=== PATIENT | female | born 2000 | race African-American/Black ===

== ENCOUNTER 2022-11-01 18:35 | Emergency (ER) | payer OTHER, SELFPAY ==
[2022-11-01 18:38] VITALS: BP 146/82; PULSE 110; RESP 18; TEMP 36.6; O2SAT 100
[2022-11-01] MEDS: ACETAMINOPHEN 500 MG TABLET 1000 MG PO (19:29)
[2022-11-01] MEDS: IBUPROFEN 400 MG TABLET 800 MG PO (19:34)
[2022-11-01] MEDS: LIDOCAINE HCL 1% LOCAL INJ 10 ML VIAL INFILTRATE (19:34)
[2022-11-01 19:39] VITALS: BP 128/72; PULSE 84; RESP 18; O2SAT 100
--- NOTE | 2022-11-01 19:40 | PC.NURSE ---
Lac tray with Lido and sutures are at bedside. ABC are wnl nad.
--- NOTE | 2022-11-01 20:07 | ED.GENADULT ---
HPI - General Adult General Chief complaint: Extremity Injury, Lower Stated complaint: stubbed toe, toe nail is off Time Seen by Provider: 11/01/22 18:47 History of Present Illness HPI narrative: this is a 22-year-old female presenting with a injury to her right great toe. patient was in a pool when she kicked a wall and knocked her acrylic nail off. No other injuries. Unknown last tetanus Related Data Allergies Allergy/AdvReac Type Severity Reaction Status Date / Time No Known Allergies Allergy Verified 11/01/22 18:36 Exam Narrative: APPEARANCE: No apparent distress. Head: atraumatic. EYES: EOMI, NOSE: Atraumatic NECK: Trachea midline RESPIRATORY: No increased rate of breathing CARDIOVASCULAR: RRR, ABDOMINAL: Non-distended MUSCULOSKELETAl: No obvious deformities NEURO: Alert. Moving 4/4 extremities SKIN:: the great toe on the right foot is almost completely removed. No underlying nail bed injury. PSYCHIATRIC: Normal affect Course Vital Signs Vital signs: Vital Signs Temperature 97.8 F 11/01/22 18:38 Pulse Rate 110 H 11/01/22 18:38 Respiratory Rate 18 11/01/22 18:38 Blood Pressure 146/82 H 11/01/22 18:38 Pulse Oximetry 100 11/01/22 18:38 Oxygen Delivery Room Air 11/01/22 18:38 Temperature 97.8 F 11/01/22 18:38 Pulse Rate 84 11/01/22 19:39 Respiratory Rate 18 11/01/22 19:39 Blood Pressure 128/72 11/01/22 19:39 Pulse Oximetry 100 11/01/22 19:39 Oxygen Delivery Room Air 11/01/22 18:38 Procedures Laceration Laceration 1: Date: 11/01/22 Site: other Side (If applicable): right ( nail injury to the right great toe. Was unable to salvage the patient's nail due to acrylic covering. A foil place dawn was created and sutured into place) Size (cm): 2 Description: other (Nailbed injury) Pre-repair: wound explored, irrigated and minor debridement ====== Skin Level ====== Skin layer closed with: nylon Size (cm): 4-0 Number of sutures: 3 ====== Subcutaneous Layer ====== ====== Muscle Layer ====== ====== Tendon Layer ====== Medical Decision Making MDM Narrative Medical decision making narrative: -Presentation: 22-year-old presenting with a toenail injury on the right foot. 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 Due to the hard acrylic dip on the nails I was unable to reattached the nail. A piece of foil was used to preserve the nail bed. -Interventions: Motrin, Tylenol, Tdap -Shared decision making / Disposition: patient will be discharged with podiatry follow-up. -RX Keflex 500mg Vital Signs Vital Signs: Vital Signs Temperature 97.8 F 11/01/22 18:38 Pulse Rate 110 H 11/01/22 18:38 Respiratory Rate 18 11/01/22 18:38 Blood Pressure 146/82 H 11/01/22 18:38 Pulse Oximetry 100 11/01/22 18:38 Oxygen Delivery Room Air 11/01/22 18:38 Temperature 97.8 F 11/01/22 18:38 Pulse Rate 84 11/01/22 19:39 Respiratory Rate 18 11/01/22 19:39 Blood Pressure 128/72 11/01/22 19:39 Pulse Oximetry 100 11/01/22 19:39 Oxygen Delivery Room Air 11/01/22 18:38 Discharge Plan Discharge Clinical Impression: Nailbed injury Patient Disposition: Home, Self-Care Condition: Stable Instructions: Antibiotic Form, Care For Your Stitches (ED) Additional Instructions: You were seen in the emergency department for a nail bed injury. Please follow-up with podiatry in 1ne week. please keep your foot
[2022-11-01] MEDS: TETANUS,DIPHTHERIA,AC PERTUSSIS ADULT (0.5 ML) BOOSTRIX IM (20:12)
[2022-11-01 20:51] VITALS: BP 135/72; PULSE 84; RESP 16; TEMP 36.6; O2SAT 97
== END 2022-11-01 20:52 | disposition home or self-care (01) ==
PROVIDERS: Emergency Provider Emergency Medicine
DX: S91.201A Unspecified open wound of right great toe with damage to nail, initial encounter (principal); Z23 Encounter for immunization; W22.042A Striking against wall of swimming pool causing other injury, initial encounter
CPT/HCPCS: 11760; 12001; 90471; 90715; 99283; A9270

== ENCOUNTER 2024-08-27 11:01 | Emergency (ER) | payer OTHER, SELFPAY ==
[2024-08-27 11:10] VITALS: BP 111/65; PULSE 80; RESP 16; TEMP 36.6; O2SAT 100
--- NOTE | 2024-08-27 11:29 | ED_ITS ---
HPI - General Adult General Chief complaint: Abdominal Pain Stated complaint: ABD PAIN Time Seen by Provider: 08/27/24 11:25 Mode of arrival: ambulatory Limitations: no limitations History of Present Illness HPI narrative: 24-year-old female presents concern for menstrual cramps. She reports she missed school yesterday because she had worse cramps and usual. Reports they have improved but she needs a note to go back to school. She denies any fever, body aches, chills, sweats. Denies any nausea or vomiting. MD complaint: Menstrual cramps Related Data Home Medications ?Medication ?Instructions ?Recorded ?Confirmed ?Last Taken ?Type No Home Medications 08/27/24 08/27/24 Unknown History Allergies Allergy/AdvReac Type Severity Reaction Status Date / Time No Known Allergies Allergy Verified 08/27/24 11:13 Review of Systems Review of Systems: CONSTITUTIONAL: Denies malaise, chills, sweats, or fever. RESPIRATORY: Denies cough or dyspnea. GASTROINTESTINAL: Denies abdominal pain, nausea, vomiting, diarrhea GENITOURINARY: Denies dysuria or hematuria. MUSCULOSKELETAL: Denies back pain, joint pain, or myalgia. All systems reviewed & are unremarkable except as noted in HPI and below PMFSH Comments At time of signature, agree with nursing past medical, surgical, social and family history. There is no relevant family history pertinent to the presenting complaint Exam Narrative: GENERAL: Well-appearing, well-nourished, and in no acute distress. HEAD: Normocephalic. EYES: PERRLA, conjunctivae clear. NECK: Supple. No lymphadenopathy CHEST: Clear to auscultation. No respiratory distress. HEART: Regular rate and rhythm. ABDOMEN: Soft, nontender upon palpation, nondistended, normal active bowel sounds, no palpable or pulsatile masses, no guarding. No CVA tenderness SKIN: Warm, dry, no rash. NEURO: Alert and oriented x3. PSYCH: Normal mood and affect Course Course Emergency Course: Patient is aware of diagnosis, understands and agrees to treatment plan. Anticipatory guidance given. Patient agrees to follow-up as directed and is aware of reasons to seek care at the emergency department. Portions of this record may have been created with voice recognition software Level of Care: Express Care Visit Vital Signs Vital signs: Vital Signs Temperature 97.8 F 08/27/24 11:10 Pulse Rate 80 08/27/24 11:10 Respiratory Rate 16 08/27/24 11:10 Blood Pressure 111/65 08/27/24 11:10 Pulse Oximetry 100 08/27/24 11:10 Temperature 97.8 F 08/27/24 11:10 Pulse Rate 80 08/27/24 11:10 Respiratory Rate 16 08/27/24 11:10 Blood Pressure 111/65 08/27/24 11:10 Pulse Oximetry 100 08/27/24 11:10 Reviewed. Medical Decision Making MDM Narrative Medical decision making narrative: The patient was evaluated by myself in the [facility]. History is obtained from patient who is an independent historian and physical exam was performed.? Available medical records were reviewed at this time. ? Exam findings show no acute concerns or changes; patient is non-toxic appearing and is in no distress. Patient is appropriate for outpatient treatment and follow-up. ? I have evaluated and discussed social determinants of health with the patient that could potentially impact subsequent diagnosis and treatment plans. ? Differential diagnosis and treatment plan were discussed with the patient. Patient agrees with discussion and after shared medical decision making agrees with plan of care. All questions were answered to the patient's satisfaction. Vital Signs Vital Signs: Vital Signs Temperature 97.8 F 08/27/24 11:10 Pulse Rate 80 08/27/24 11:10 Respiratory Rate 16 08/27/24 11:10 Blood Pressure 111/65 08/27/24 11:10 Pulse Oximetry 100 08/27/24 11:10 Temperature 97.8 F 08/27/24 11:10 Pulse Rate 80 08/27/24 11:10 Respiratory Rate 16 08/27/24 11:10 Blood Pressure 111/65 08/27/24 11:10 Pulse Oximetry 100 08/27/24 11:10 Critical Care Time Critical Care Time Critical Care Time: No Discharge Plan Discharge Clinical Impression: Menorrhagia Patient Disposition: Home Condition: Stable Instructions: Menorrhagia (ED) Additional Instructions: 1) Please follow-up with your primary care doctor as needed. 2) If you have any worsening of symptoms or any other urgent concerns please go to the ER. 3) Please read and follow information included in discharge instructions. Patient Language: Lao Prescriptions: No Action No Home Medications Follow-up/Referrals: David,Samuel [Other] Stand Alone Forms: Work/School Release IP Time of Disposition: 11:33
== END 2024-08-27 11:36 | disposition home or self-care (01) ==
PROVIDERS: Emergency Provider Nurse Practitioner
DX: N92.0 Excessive and frequent menstruation with regular cycle (principal)
CPT/HCPCS: 99211; G0463

== ENCOUNTER 2024-09-03 17:02 | Emergency (ER) | payer OTHER, SELFPAY ==
[2024-09-03 17:14] VITALS: BP 102/64; PULSE 76; RESP 18; TEMP 36.6; O2SAT 100
--- NOTE | 2024-09-03 17:42 | ED_ITS ---
HPI - Wound/Laceration General Chief Complaint: Wound/Laceration Stated Complaint: Cut Finger Time Seen by Provider: 09/03/24 17:28 Source: patient, RN notes reviewed and old records reviewed Mode of arrival: ambulatory Limitations: no limitations History of Present Illness HPI narrative: 24 year old female who presents to [facility] care with complaints of avulsion of skin at the medial tip of skin near distal left nail bed on Monday which bleed for awhile but now it is scabbed and still is tender. Patient reports that she is concerned since she is having graduation on Monday. Patient denies any drainage or acute pain to site. Onset (ago): day(s) (4) Location: other Place: home Patient tetanus UTD: Yes Treatments prior to arrival: other (band-aid to site, cleansed with soap and water) Related Data Allergies Allergy/AdvReac Type Severity Reaction Status Date / Time No Known Allergies Allergy Verified 08/27/24 11:13 Review of Systems Review of Systems: CONSTITUTIONAL: Denies fever, chills, or sweats. CARDIOVASCULAR: Denies chest pain, palpitations, or edema. RESPIRATORY: Denies cough or dyspnea. GASTROINTESTINAL: Denies abdominal pain, nausea, vomiting SKIN: Reports scabbed area to left distal medial aspect of skin near nail bed with no redness or drainage noted. Denies any purulent drainage, numbness, no pain beyond proportion MUSCULOSKELETAL: Denies myalgia. NEUROLOGIC: Denies headache, numbness All systems reviewed & are unremarkable except as noted in HPI and below PMFSH Social History Social History (Updated 09/05/24 @ 14:27 by Rayna Knight NP) Smoking status: Never smoker Alcohol intake: current Alcohol use details: social Substance use type: does not use Occupation/Education: student Gender identity (if verbalized by the patient): Female Comments At time of signature, agree with nursing past medical, surgical, social and family history. There is no relevant family history pertinent to the presenting complaint Exam Narrative: GENERAL: Well-appearing, well-nourished, and in no acute distress. HEAD: Normocephalic, atraumatic. EYES: PERRLA and EOMI. ENT: Nares clear, no rhinorrhea or epistaxis. Mucous membranes moist. NECK: Supple. CHEST: Clear to auscultation. No respiratory distress. HEART: Regular rate and rhythm. No murmur heard. Normal peripheral pulses. ABDOMEN: Soft, nontender, nondistended, normal active bowel sounds. EXTREMITIES: Normal range of motion. No edema. SKIN: Warm, dry. Erythema, induration, tenderness, warmth with sharp margins noted (XX). No vesicles, bullae, necrosis, ecchymosis, crepitus noted NEURO: No focal deficits. Alert and oriented x3. Course Course Emergency Course: Patient is aware of diagnosis, understands and agrees to treatment plan. Anticipatory guidance given. Patient agrees to follow-up as directed and is aware of reasons to seek care at the emergency department. Portions of this record may have been created with voice recognition software Level of Care: Express Care Visit Vital Signs Vital signs: Vital Signs Temperature 36.6 C 09/03/24 17:14 Pulse Rate 76 09/03/24 17:14 Respiratory Rate 18 09/03/24 17:14 Blood Pressure 102/64 09/03/24 17:14 Pulse Oximetry 100 09/03/24 17:14 Temperature 36.6 C 09/03/24 17:14 Pulse Rate 76 09/03/24 17:14 Respiratory Rate 18 09/03/24 17:14 Blood Pressure 102/64 09/03/24 17:14 Pulse Oximetry 100 09/03/24 17:14 Reviewed Critical Care Time Critical Care Time Critical Care Time: No Discharge Plan Discharge Clinical Impression: Avulsion of skin Patient Disposition: Home Condition: Stable Instructions: Antibiotic Form, Skin Avulsion (ED) Additional Instructions: Cleanse left 5th finger with liquid dial soap and warm water and rinse apply bacitracin ointment Tylenol or Ibuprofen for any fever or pain follow up with PCP in 7-10 days for a wound check recheck if develop fever, chills, increasing symptom Go to the ER if your symptoms become worse of if ANY new symptoms develop antibiotic as ordered take all doses If your symptoms persist, change or worsen significantly before you can contact your personal physician then please, without delay, go to the emergency department for further evaluation. Follow-up with PCP in 7-10 days or sooner if needed Monitor for any fever Dressing of choice Patient Language: Yoruba Prescriptions: New cephalexin 500 mg capsule 500 mg PO Q12H Qty: 10 0RF bacitracin 500 unit/gram ointment 1 applic topical BID Qty: 28 0RF Rx Instructions: left 5th finger Follow-up/Referrals: PHYSICIAN,RN MOBILE [Primary Care Provider] - Quality [place] Coma Scale Eyes: Open Verbal: Oriented and Alert Motor: Follows Commands [place] Coma Total Score: 15
== END 2024-09-03 17:56 | disposition home or self-care (01) ==
PROVIDERS: Emergency Provider Registered Nurse
DX: S61.207A Unspecified open wound of left little finger without damage to nail, initial encounter (principal); X58.XXXA Exposure to other specified factors, initial encounter
CPT/HCPCS: 99213; G0463